=== PATIENT | female | born 1970 | race American Indian/Alaskan Native ===

== ENCOUNTER 2020-04-03 16:13 | Emergency (ER) | payer SELFPAY ==
[2020-04-03 16:40] VITALS: BP 149/98
[2020-04-03 18:18] LABS: Bacteria,Urine 1+ /HPF (Negative); Bilirubin,Urine NEG (Negative); Blood,Urine MOD (Negative); Color,Urine Amber (Yellow); Mucus,Urine FEW /HPF; Sperm,Urine FEW /HPF (NP)
[2020-04-03 18:21] LABS: WBC,Urine > 182.0 /HPF (0.0-6.0)
--- NOTE | 2020-04-03 18:49 | Emergency Department Report ---
ED Female HPI - General Chief complaint: Urogenital-Female Stated complaint: BURNING ON URINATION Source: patient Mode of arrival: Ambulatory Limitations: No Limitations - History of Present Illness Initial comments: The patient was evaluated in the emergency department for symptoms described in the history of present illness. He/she was evaluated in the context of the [facility] COVID-19 pandemic, which necessitated consideration that the patient might be at risk for infection with the virus that causes COVID-19. Institutional protocols and algorithms that pertain to the evaluation of patients at risk for COVID-19 are in a state of rapid change based on information released by regulatory bodies including the CDC and federal and state organizations. These policies and algorithms were followed during the patient's care in the emergency department. Please note that these policies, procedures and recommendations changed on a rapid basis. 49-year-old -Citizen Of [place] female presents with a 1 day history of dysuria and pelvic pressure. Patient denies any fever chills no back pain no nausea no vomiting. Patient denies any fever or chills. Patient reports she is not had any unprotected intercourse and recently had a STD check the second of this month. Complaint: dysuria Onset/Timin -: days(s) Location: suprapubic Severity scale (0 -10): 2 Consistency: intermittent Worsens with: urination Are you Now?: No Last Menstrual Period: 05/20/19 (depo) EDC: 02/24/20 Associated Symptoms: dysuria. denies: vaginal discharge, vaginal bleeding - Related Data Sexually active: Yes Previous Rx's Medication Instructions Recorded Last Taken Type Nitrofurantoin [place]/M-Cryst 100 mg PO Q12HR 10 Days #20 capsule 04/03/20 Unknown Rx [Macrobid CAP] Phenazopyridine [Pyridium] 100 mg PO TID #6 tab 04/03/20 Unknown Rx Allergies Allergy/AdvReac Type Severity Reaction Status Date / Time clindamycin Allergy Swelling Verified 04/03/20 16:38 ibuprofen Allergy Swelling Verified 04/03/20 16:38 naproxen [From Naprosyn] Allergy Swelling Verified 04/03/20 16:38 tramadol Allergy Swelling Verified 04/03/20 16:38 ED Review of Systems ROS: Stated complaint: BURNING ON URINATION Other details as noted in HPI Comment: All other systems reviewed and negative ED Past Medical Hx - Past Medical History Hx Hypertension: Yes Hx Diabetes: Yes Additional medical history: ENDOMETRIOSIS - Surgical History Past Surgical History?: Yes Additional Surgical History: TUBAL LIGATATION - Medications Home Medications: Home Medications Medication Instructions Recorded Confirmed Last Taken Type Nitrofurantoin [place]/M-Cryst 100 mg PO Q12HR 10 Days #20 capsule 04/03/20 Unknown Rx [Macrobid CAP] Phenazopyridine [Pyridium] 100 mg PO TID #6 tab 04/03/20 Unknown Rx ED Physical Exam - General Limitations: No Limitations General appearance: alert, in no apparent distress - Head Head exam: Present: atraumatic, normocephalic - Eye Eye exam: Present: normal appearance - ENT ENT exam: Present: normal exam, mucous membranes moist - Neck Neck exam: Present: full ROM - Respiratory Respiratory exam: Absent: accessory muscle use - Cardiovascular Cardiovascular Exam: Present: regular rate - GI/Abdominal GI/Abdominal exam: Present: soft, tenderness. Absent: distended - Extremities Exam Extremities exam: Present: normal inspection, full ROM - Back Exam Back exam: Present: normal inspection, full ROM - Neurological Exam Neurological exam: Present: alert, oriented X3, normal gait - Psychiatric Psychiatric exam: Present: normal affect, normal mood - Skin Skin exam: Present: warm, dry, intact, normal color. Absent: rash ED Course Vital Signs 04/03/20 16:38 Temperature 98.6 F Pulse Rate 107 H Respiratory 18 Rate Blood Pressure 149/98 O2 Sat by Pulse 99 Oximetry ED Medical Decision Making - Medical Decision Making 49-year-old -Citizen Of [place] female presents with a 1 day history of dysuria and pelvic pressure. Patient denies any fever chills no back pain no nausea no vom iting. Patient denies any fever or chills. Patient reports she is not had any unprotected intercourse and recently had a STD check the second of this month. Pulse rechecked by this provider 89. Patient appears to have a urinary tract infection with the urine grew greater than 182 WBCs nitrate positive protein. Patient be treated with Macrobid and Pyridium. Patient is to follow-up with her primary care provider. Critical care attestation.: If time is entered above; I have spent that time in minutes in the direct care of this critically ill patient, excluding procedure time. ED Disposition Clinical Impression: UTI (urinary tract infection) Qualifiers: Urinary tract infection type: acute cystitis Hematuria presence: with hematuria Qualified Code(s): N30.01 - Acute cystitis with hematuria Disposition: TO HOME OR SELFCARE Is pt being admited?: No Does the pt Need Aspirin: No Condition: Stable Instructions: Urinary Tract Infection, Adult, [id number] Additional Instructions: Complete your antibiotics as prescribed. Take the Pyridium for the urethra spasms. Please increase your water intake by 4 L daily and follow-up with your primary care provider. Prescriptions: Nitrofurantoin [place]/M-Cryst [Macrobid CAP] 100 mg PO Q12HR 10 Days #20 capsule Phenazopyridine [Pyridium] 100 mg PO TID #6 tab Referrals: [facility] [Provider Group] - 3-5 Days Forms: Work/School Release Form(ED)
== END 2020-04-03 18:23 | disposition home or self-care (01) ==
LOC: ED 16:13
DX: N39.0 Urinary tract infection, site not specified (principal); I10 Essential (primary) hypertension; E11.9 Type 2 diabetes mellitus without complications; F17.200 Nicotine dependence, unspecified, uncomplicated; Z88.1 Allergy status to other antibiotic agents; Z88.6 Allergy status to analgesic agent
CPT/HCPCS: 81001; 99282

== ENCOUNTER 2020-11-06 21:13 | Emergency (ER) | payer OTHER ==
[2020-11-06] MEDS ORDERED: ONDANSETRON 4 MG ODT TAB PO ONE (22:05)
[2020-11-06] MEDS ORDERED: HYDROcodone/ACETAMINOPHEN 7.5-325MG TAB PO ONE (22:05)
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
[2020-11-06 23:47] VITALS: BP 155/92
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
[2020-11-07] MEDS ORDERED: ONDANSETRON 4 MG ODT TAB PO ONE (02:00)
[2020-11-07] MEDS ORDERED: HYDROcodone/ACETAMINOPHEN 7.5-325MG TAB PO ONE (02:00)
== END 2020-11-07 01:30 | disposition home or self-care (01) ==
LOC: ED 21:13
DX: S29.012A Strain of muscle and tendon of back wall of thorax, initial encounter (principal); M62.838 Other muscle spasm; M54.2 Cervicalgia; M62.830 Muscle spasm of back; M54.5 Low back pain; I10 Essential (primary) hypertension; E11.9 Type 2 diabetes mellitus without complications; Z98.51 Tubal ligation status; Z88.1 Allergy status to other antibiotic agents; Z88.6 Allergy status to analgesic agent; Z88.8 Allergy status to other drugs, medicaments and biological substances; Z79.899 Other long term (current) drug therapy; V89.2XXA Person injured in unspecified motor-vehicle accident, traffic, initial encounter; Y93.89 Activity, other specified; Y92.488 Other paved roadways as the place of occurrence of the external cause; Y99.8 Other external cause status
CPT/HCPCS: 72070; 72100; 72125; 99284; Q0162